=== PATIENT | female | born 1985 | race Hispanic/Latino ===

== ENCOUNTER → 2018-09-24 | Outpatient (CLI) | payer BC ==
--- NOTE | 2018-09-24 11:19 | Diagnostic Imaging Report ---
Exam: Left foot radiographs - 3 views Clinical History: Dorsal left foot pain at calcaneous Comparison: None. Findings: No evidence of acute fracture, malalignment, or soft tissue abnormality. The Lisfranc alignment is maintained. The calcaneus is unremarkable in appearance. Impression: No acute radiographic abnormality. Signed by: Dr. Galo Gomez MD on 09/24/2018 11:16 AM
--- NOTE | 2018-09-24 11:38 | Diagnostic Imaging Report ---
EXAM: Right upper quadrant abdominal ultrasound INDICATION: Right upper quadrant pain COMPARISON: None. TECHNIQUE: Transverse and longitudinal images of the right upper quadrant abdomen were obtained FINDINGS: Liver: Size: Measures 13.6 cm in the right midclavicular line, normal Appearance: Normal echogenicity, smooth contour Mass: No focal masses Gallbladder: No evidence of distension, pericholecystic fluid, wall thickening, stone, or reported sonographic Chapman's sign. Gallbladder wall measures 0.3 cm. Bile Ducts: Intrahepatic Ducts: No dilatation Extrahepatic Ducts: Common bile duct measures 0.2 cm, no dilatation Pancreas: Limited evaluation of the pancreatic tail due to overlying bowel gas. Partially visualized portions of the pancreas are unremarkable. Kidney: The right kidney measures 10.1 cm without evidence of hydronephrosis or stone. Vessels: Aorta: Visualized portions are normal Inferior Vena Cava: Visualized portions are normal Main Portal Vein: 0.9 cm, normal size with hepatopetal flow. Free Fluid: No evidence of ascites. IMPRESSION: No sonographic evidence of cholelithiasis or cholecystitis. Signed by: Dr. Galo Gomez MD on 09/24/2018 11:35 AM
== END ==
LOC: US 09:54
PROVIDERS: ATTEND Family Medicine
DX: M79.672 Pain in left foot (principal); R10.11 Right upper quadrant pain
CPT/HCPCS: 76705

== ENCOUNTER → 2019-09-29 | Outpatient (CLI) | payer BC ==
[~2019-09-29] MED LIST: IOPAMIDOL 370 MG/ML 200 ML INFUS..BTL INJ ONE; SODIUM CHLORIDE 0.9% 50ML 50 ML ONE
--- NOTE | 2019-09-29 09:19 | Diagnostic Imaging Report ---
CT of the abdomen and pelvis, with contrast. History: Epigastric pain. Comparison: Limited abdominal ultrasound from 09/24/2018. Technique: Multidetector CT scanning of the abdomen and pelvis was performed from the level of the lung bases to the inferior pubic rami after intravenous administration of contrast. Coronal and sagittal multiplanar reformations were obtained. RADIATION DOSE: Total DLP: 500.27 mGy*cm Dose modulation, iterative reconstruction, and/or weight based adjustment of the mA/kV was utilized to reduce the radiation dose to as low as reasonably achievable. FINDINGS: The lung bases are unremarkable. The imaged portion of the heart demonstrates no significant abnormalities. The liver is normal in size and attenuation without evidence for focal abnormality. The gallbladder is unremarkable. There is no biliary ductal dilatation. The stomach, spleen, pancreas, and bilateral adrenal glands are unremarkable. The kidneys are normal in size and location and enhance symmetrically. There is no evidence for hydronephrosis. The ureters are normal in course and caliber. The urinary bladder demonstrates no significant abnormalities. The uterus and adnexa are grossly unremarkable. The abdominal aorta is normal course and caliber. The IVC is unremarkable. Please note evaluation the bowel is limited without the use of enteric contrast material. The visualized loops small large bowel demonstrate no evidence of obstruction or inflammation. The appendix is visualized and appears unremarkable. There is no ascites or intraperitoneal free air. No abnormally enlarged lymph nodes are identified within the abdomen or pelvis. The osseous structures demonstrate no evidence for acute fracture or destructive process. The extraperitoneal soft tissues are unremarkable. IMPRESSION: No acute abdominopelvic process identified. Signed by: Dr. Jose Luis Mckeon MD on 09/29/2019 9:17 AM
== END ==
LOC: CT 07:52
PROVIDERS: ATTEND Specialist
DX: R10.10 Upper abdominal pain, unspecified (principal)
CPT/HCPCS: 74177; 81025; Q9967

== ENCOUNTER 2021-07-29 19:47 | Emergency (ER) | payer OTHER ==
[~2021-07-29] VITALS: Ht 157.5 cm; Wt 77.1 kg
[2021-07-29] MEDS ORDERED: IBUPROFEN 600 MG TAB PO STA (20:04)
== END 2021-07-29 21:43 | disposition home or self-care (01) ==
LOC: ER 20:12
DX: S06.0X0A Concussion without loss of consciousness, initial encounter (principal); W01.0XXA Fall on same level from slipping, tripping and stumbling without subsequent striking against object, initial encounter; Y93.01 Activity, walking, marching and hiking; Y92.89 Other specified places as the place of occurrence of the external cause
CPT/HCPCS: 70450; 70486